=== PATIENT | male | born 1965 | race African-American/Black ===

== ENCOUNTER 2016-07-03 16:16 | Inpatient (IN) | payer OTHER ==
[2016-07-03 16:45] VITALS: BMI 24.0
--- NOTE | 2016-07-03 19:27 | HP ---
CIWA Score - CIWA Score Nausea/Vomitin-Mild Nausea/No Vomiting Muscle Tremors: 4-Moderate,w/Arms Extend Anxiety: 4-Mod. Anxious/Guarded Agitation: 4-Moderately Restless Paroxysmal Sweats: 1-Minimal Palms Moist Orientation: 0-Oriented Tacttile Disturbances: 0-None Auditory Disturbances: 3-Moderate Harsh/Frighten Visual Disturbances: 0-None Headache: 1-Very Mild CIWA-Ar Total Score: 18 Admission ROS BHS - HPI Chief Complaint: withdrawal sx Allergies/Adverse Reactions: Allergies Allergy/AdvReac Type Severity Reaction Status Date / Time No Known Allergies Allergy Verified 07/03/16 19:29 History of Present Illness: 51 years old male with long history of alcohol nicotine dependence has hypertension and ptsd depression is admitted to detox Exam Limitations: No Limitations - Ebola screening Have you traveled outside of the country in the last 21 days: No Have you had contact with anyone from an Ebola affected area: No Have you been sick,other than usual withdrawal symptoms: No Do you have a fever: No - Review of Systems Constitutional: Chills, Loss of Appetite, Changes in sleep, Unintentional Wgt. Loss EENT: reports: Blurred Vision (eye glasses reading), Other (right ear) Respiratory: reports: No Symptoms reported Cardiac: reports: No Symptoms Reported GI: reports: Nausea, Poor Appetite, Poor Fluid Intake, Abdominal cramping : reports: No Symptoms Reported Musculoskeletal: reports: Back Pain, Joint Pain (cervical) Integumentary: reports: Dryness Neuro: reports: Tremors Hematology: reports: No Symptoms Reported Psychiatric: reports: Judgement Intact, Depressed Other Systems: Reviewed and Negative Patient History - Patient Medical History Hx Anemia: No Hx Asthma: No Hx Chronic Obstructive Pulmonary Disease (COPD): No Hx Cancer: No Hx Cardiac Disorders: No Hx Congestive Heart Failure: No Hx Hypertension: Yes Hx Hypercholesterolemia: No Hx Pacemaker: No HX Cerebrovascular Accident: No Hx Seizures: No Hx Dementia: No Hx Diabetes: Yes (hypoglycemia) Hx Gastrointestinal Disorders: No Hx Liver Disease: No Hx Genitourinary Disorders: No Hx Sexually Transmitted Disorders: No Hx Renal Disease (ESRD): No Hx Thyroid Disease: No Hx Human Immunodeficiency Virus (HIV): No Hx Hepatitis C: No Hx Depression: Yes Hx Suicide Attempt: No Hx Bipolar Disorder: No Hx Schizophrenia: No - Patient Surgical History Past Surgical History: Yes Hx Neurologic Surgery: No Hx Cataract Extraction: No Hx Cardiac Surgery: No Hx Lung Surgery: No Hx Breast Surgery: No Hx Breast Biopsy: No Hx Abdominal Surgery: No Hx Appendectomy: No Hx Cholecystectomy: No Hx Genitourinary Surgery: No Hx Orthopedic Surgery: Yes (fx elisabethcarey 2006) Anesthesia Reaction: No - PPD History Previous Implant?: Yes Documented Results: Negative w/o proof Implanted On Prior R Admission?: No PPD to be Administered?: Yes - Smoking Cessation Smoking history: Current every day smoker Have you smoked in the past 12 months: Yes Aproximately how many cigarettes per day: 4 Cigars Per Day: 0 Hx Chewing Tobacco Use: No Initiated information on smoking cessation: Yes 'Breaking Loose' booklet given: 07/03/16 - Substance & Tx. History Hx Alcohol Use: Yes Hx Substance Use: Yes Substance Use Type: Alcohol, Cocaine, Marijuana Hx Substance Use Treatment: Yes - Substances Abused Alcohol Route: Oral Frequency: Daily Amount used: 6 pack beer+ pint volka Age of first use: 23 Date of Last Use: 07/03/16 Family Disease History - Family Disease History Family Disease History: CA: Grandparent, Mother Admission Physical Exam S - Vital Signs Vital Signs: Vital Signs - 24 hr 07/03/16 16:41 Temperature 97.1 F L Pulse Rate 90 Respiratory 20 Rate Blood Pressure 136/87 - Physical General Appearance: Yes: Appropriately Dressed, Mild Distress, Thin, Tremorous, Irritable, Sweating, Anxious HEENTM: Yes: Normocephalic, Normal Voice, Hearing Decreased (right ear otitis) Respiratory: Yes: Chest Non-Tender, Lungs Clear, Normal Breath Sounds, No Respiratory Distress, No Accessory Muscle Use Neck: Yes: Supple, Trachea in good position Breast: Yes: Breasts Symetrical Cardiology: Yes: Regular Rhythm, Regular Rate, S1, S2, Murmur Abdominal: Yes: Non Tender, Soft Genitourinary: Yes: Within Normal Limits Back: Yes: Normal Inspection Musculoskeletal: Yes: full range of Motion, Gait Steady, Back pain, Muscle Pain (cervical) Extremities: Yes: Normal Inspection, Normal Range of Motion, Non-Tender, Tremors Neurological: Yes: Alert, Motor Strength 5/5, Normal Response, Depressed Affect Integumentary: Yes: Warm Lymphatic: Yes: Within Normal Limits - Diagnostic (1) Alcohol dependence with uncomplicated withdrawal Current Visit: Yes Status: Acute (2) Hypertension Current Visit: Yes Status: Acute Qualifiers: Hypertension type: essential hypertension Qualified Code(s): I10 - Essential (primary) hypertension (3) Depression Current Visit: Yes Status: Suspected Qualifiers: Depression Type: major depressive disorder Major depression recurrence : recurrent Active/Remission status: in partial remission Qualified Code(s): F33.41 - Major depressive disorder, recurrent, in partial remission (4) Nicotine dependence Current Visit: Yes Status: Acute Qualifiers: Nicotine product type: cigarettes Substance use status: in withdrawal Qualified Code(s): F17.213 - Nicotine dependence, cigarettes, with withdrawal (5) Osteoarthritis Current Visit: Yes Status: Acute Qualifiers: Osteoarthritis location: multiple joints Osteoarthritis type: primary Qualified Code(s): M15.0 - Primary generalized (osteo)arthritis (6) Weight loss Current Visit: Yes Status: Acute (7) Hypoglycemia Current Visit: Yes Status: Chronic (8) Otitis externa Current Visit: Yes Status: Acute Qualifiers: Otitis externa type: diffuse Laterality: right Chronicity: acute Qualified Code(s): H60.311 - Diffuse otitis externa, right ear (9) Benign and innocent cardiac murmurs Current Visit: Yes Status: Chronic Cleared for Admission BHS - Detox or Rehab S Level of Care: Medically Managed Detox Regimen/Protocol: Librium S Breath Alcohol Content Breath Alcohol Content: 0 Urine Drug Screen - Results Drug Screen Negative: No Urine Drug Screen Results: THC-Marijuana, ANNAMARIE-Cocaine
[2016-07-03] MEDS ORDERED: MAGNESIUM CITRATE 300 ML BOTTLE PO PRN (19:41)
[2016-07-03] MEDS ORDERED: LOPERAMIDE HCL 2 MG CAPSULE PO PRN (19:41)
[2016-07-03] MEDS ORDERED: guaiFENesin/D-METHORPHAN HB 10 ML UNIT-DOSE CUPS PO PRN (19:41)
[2016-07-03] MEDS ORDERED: IBUPROFEN 400 MG TABLET (FP) PO PRN (19:41)
[2016-07-03] MEDS ORDERED: chlordiazePOXIDE HCL 25 MG CAPSULE PO PRN (19:41)
[2016-07-03] MEDS ORDERED: MAGNESIUM HYDROX 2400MG/30ML ORAL SUSPENSION 30 ML CUP PO PRN (19:41)
[2016-07-03] MEDS ORDERED: hydrOXYzine PAMOATE 50 MG CAPSULE (FP) PO PRN (19:41)
[2016-07-03] MEDS ORDERED: MENTHOL/PHENOL 1 EACH UD MM PRN (19:41)
[2016-07-03] MEDS ORDERED: NICOTINE POLACRILEX 2 MG GUM BUC PRN (19:41)
[2016-07-03] MEDS ORDERED: MAG HYDROX/AL HYDROX/SIMETH 30 ML UNIT-DOSE CUP PO PRN (19:41)
[2016-07-03] MEDS ORDERED: ACETAMINOPHEN 325 MG TABLET (FP) PO PRN (19:41)
[2016-07-03] MEDS ORDERED: P-EPHED 60MG/TRIPROLIDI 2.5MG TABLET PO PRN (19:41)
[2016-07-03] MEDS: diphenhydrAMINE HCL 50 MG CAPSULE PO PRN (22:26)
[2016-07-03] MEDS: chlordiazePOXIDE HCL 25 MG CAPSULE PO SCH (22:26)
[2016-07-03] MEDS: THIAMINE HCL 100 MG TABLET (FP) PO SCH (22:26)
[2016-07-03] MEDS: MINERAL OIL/PETROLAT/WATER TOPICAL CREAM 113 GM JAR TP SCH (22:54)
[2016-07-03] MEDS: OFLOXACIN 0.3% OTIC SOLUTION 5 ML BOTTLE AU SCH (22:54)
[2016-07-04 01:20] LABS: URINE APPEARANCE CLEAR; URINE BILIRUBIN NEGATIVE (NEGATIVE); URINE BLOOD NEGATIVE (NEGATIVE); URINE COLOR YELLOW; URINE GLUCOSE (UA) NEGATIVE (NEGATIVE); URINE KETONE NEGATIVE (NEGATIVE); URINE LEUK ESTERASE NEGATIVE (NEGATIVE); URINE NITRITE NEGATIVE (NEGATIVE); URINE PROTEIN NEGATIVE (NEGATIVE); URINE UROBILINOGEN 4.0 E.U/dl E.U./dl (0.2-1.0)
[2016-07-04] MEDS: chlordiazePOXIDE HCL 25 MG CAPSULE PO SCH ×4 (06:06→22:56)
--- NOTE | 2016-07-04 09:31 | EKG ---
Test Reason : Blood Pressure : / mmHG Vent. Rate : 069 BPM Atrial Rate : 069 BPM P-R Int : 196 ms QRS Dur : 084 ms QT Int : 394 ms P-R-T Axes : 063 063 069 degrees QTc Int : 422 ms NORMAL SINUS RHYTHM MINIMAL VOLTAGE CRITERIA FOR LVH, MAY BE NORMAL VARIANT NO PREVIOUS ECGS AVAILABLE Confirmed by AMRIK WOO MD ([id number]) on 07/04/2016 9:30:48 AM Referred By: Confirmed By:AMRIK WOO MD
[2016-07-04] MEDS ORDERED: LIDOCAINE 5% TOPICAL PATCH TP SCH (10:00)
[2016-07-04 10:27] LABS: MCH 31.1 pg (25.7-33.7); MCHC 33.4 g/dl (32.0-35.9); MEAN CELL VOLUME 93.3 fl (80-96); PLATELET COUNT 165 K/MM3 (134-434); RDW 13.9 % (11.9-15.9); WHITE BLOOD COUNT 5.3 K/mm3 (4.0-10.0)
[2016-07-04] MEDS: OFLOXACIN 0.3% OTIC SOLUTION 5 ML BOTTLE AU SCH ×2 (10:54→22:54)
[2016-07-04] MEDS: ASPIRIN 81 MG CHEWABLE TABLETS PO SCH (10:54)
[2016-07-04] MEDS: HYDROCHLOROTHIAZIDE 12.5 MG CAPSULE (FP) PO SCH (10:55)
[2016-07-04] MEDS: PRENATAL VITAMINS W/ FOLIC ACID TABLET (FP) PO SCH (10:56)
[2016-07-04] MEDS: LIDOCAINE 5% TOPICAL PATCH TP SCH (10:56)
[2016-07-04] MEDS: NICOTINE 14 MG/24 HOURS TOPICAL PATCH TD SCH (10:56)
--- NOTE | 2016-07-04 12:08 | PN ---
S CIWA - CIWA Score Nausea/Vomitin Muscle Tremors: 4-Moderate,w/Arms Extend Anxiety: 4-Mod. Anxious/Guarded Agitation: 4-Moderately Restless Paroxysmal Sweats: 3 Orientation: 0-Oriented Tacttile Disturbances: 1-Very Mild Itch/Numbness Auditory Disturbances: 0-None Visual Disturbances: 0-None Headache: 1-Very Mild CIWA-Ar Total Score: 20 BHS Progress Note (SOAP) Subjective: nausea, sweats, interrupted sleep, anxiety, tremors Objective: 07/04/16 12:07 Vital Signs - 8 hr 07/04/16 07/04/16 06:00 10:26 Temperature 97.5 F L 97.8 F Pulse Rate 66 77 Respiratory 18 18 Rate Blood Pressure 122/66 127/83 Laboratory Tests 07/04/16 07/04/16 07/04/16 00:45 07:40 07:40 WBC 5.3 RBC 4.82 Hgb 15.0 Hct 44.9 MCV 93.3 MCHC 33.4 RDW 13.9 Plt Count 165 MPV 8.0 Hemoglobin A1c % 5.6 Urine Color Yellow Urine Appearance Clear Urine pH 6.0 Ur Specific [place] 1.021 Urine Protein Negative Urine Glucose (UA) Negative Urine Ketones Negative Urine Blood Negative Urine Nitrite Negative Urine Bilirubin Negative Urine Urobilinogen 4.0 e.u/dl Ur Leukocyte Esterase Negative labs still pending Assessment: 07/04/16 12:08 withdrawal sx Plan: cont detox, fluids
[2016-07-04 12:10] LABS: ALBUMIN 3.6 g/dl (3.4-5.0); ALK PHOS 67 U/L (45-117); ANION GAP 13 (8-16); CALCIUM 8.7 mg/dL (8.5-10.1); CO2 23 mmol/L (21-32); CREATININE 1.1 mg/dL (0.7-1.3); GLUCOSE,RANDOM 97 mg/dL (74-106); SGOT/AST 10 U/L (15-37); SGPT/ALT 16 U/L (12-78); TOT PROT 7.2 g/dl (6.4-8.2)
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
[2016-07-04] MEDS: MINERAL OIL/PETROLAT/WATER TOPICAL CREAM 113 GM JAR TP SCH (22:53)
[2016-07-04] MEDS: THIAMINE HCL 100 MG TABLET (FP) PO SCH (22:56)
[2016-07-05] MEDS: chlordiazePOXIDE HCL 25 MG CAPSULE PO SCH ×3 (06:18→17:33)
[2016-07-05] MEDS: ASPIRIN 81 MG CHEWABLE TABLETS PO SCH (10:55)
[2016-07-05] MEDS: HYDROCHLOROTHIAZIDE 12.5 MG CAPSULE (FP) PO SCH (10:55)
[2016-07-05] MEDS: OFLOXACIN 0.3% OTIC SOLUTION 5 ML BOTTLE AU SCH ×2 (10:56→22:25)
[2016-07-05] MEDS: PRENATAL VITAMINS W/ FOLIC ACID TABLET (FP) PO SCH (10:57)
[2016-07-05] MEDS: NICOTINE 14 MG/24 HOURS TOPICAL PATCH TD SCH (10:58)
[2016-07-05] MEDS: LIDOCAINE 5% TOPICAL PATCH TP SCH (10:59)
--- NOTE | 2016-07-05 14:43 | PN ---
[facility] CIWA - CIWA Score Nausea/Vomitin-No Nausea/No Vomiting Muscle Tremors: 3 Anxiety: 4-Mod. Anxious/Guarded Agitation: 3 Paroxysmal Sweats: 3 Orientation: 0-Oriented Tacttile Disturbances: 0-None Auditory Disturbances: 0-None Visual Disturbances: 0-None Headache: 0-None Present CIWA-Ar Total Score: 13 S Progress Note (SOAP) Subjective: ANXIETY,TREMORS,SWEATING,INTERRUPTED SLEEP,RESTLESS Objective: 07/05/16 14:43 Vital Signs - 8 hr 07/05/16 07/05/16 10:00 14:00 Temperature 98.1 F 99.3 F Pulse Rate 81 84 Respiratory 16 18 Rate Blood Pressure 135/91 127/67 Laboratory Last Values WBC 5.3 K/mm3 (4.0-10.0) 07/04/16 07:40 RBC 4.82 M/mm3 (4.00-5.60) 07/04/16 07:40 Hgb 15.0 GM/dL (11.7-16.9) 07/04/16 07:40 Hct 44.9 % (35.4-49) 07/04/16 07:40 MCV 93.3 fl (80-96) 07/04/16 07:40 MCHC 33.4 g/dl (32.0-35.9) 07/04/16 07:40 RDW 13.9 % (11.9-15.9) 07/04/16 07:40 Plt Count 165 K/MM3 (134-434) 07/04/16 07:40 MPV 8.0 fl (7.5-11.1) 07/04/16 07:40 Sodium 140 mmol/L (136-145) 07/04/16 07:40 Potassium 4.2 mmol/L (3.5-5.1) 07/04/16 07:40 Chloride 104 mmol/L (98-107) 07/04/16 07:40 Carbon Dioxide 23 mmol/L (21-32) 07/04/16 07:40 Anion Gap 13 (8-16) 07/04/16 07:40 BUN 16 mg/dL (7-18) 07/04/16 07:40 Creatinine 1.1 mg/dL (0.7-1.3) 07/04/16 07:40 Creat Clearance w eGFR > 60 (>60) 07/04/16 07:40 Random Glucose 97 mg/dL (74-106) 07/04/16 07:40 Hemoglobin A1c % 5.6 % (4.8-6.0) 07/04/16 07:40 Calcium 8.7 mg/dL (8.5-10.1) 07/04/16 07:40 Total Bilirubin 1.0 mg/dL (0.2-1.0) 07/04/16 07:40 AST 10 U/L (15-37) L 07/04/16 07:40 ALT 16 U/L (12-78) 07/04/16 07:40 Alkaline Phosphatase 67 U/L (45-117) 07/04/16 07:40 Total Protein 7.2 g/dl (6.4-8.2) 07/04/16 07:40 Albumin 3.6 g/dl (3.4-5.0) 07/04/16 07:40 Urine Color Yellow 07/04/16 00:45 Urine Appearance Clear 07/04/16 00:45 Urine pH 6.0 (5.0-8.0) 07/04/16 00:45 Ur Specific [place] 1.021 (1.001-1.035) 07/04/16 00:45 Urine Protein Negative (NEGATIVE) 07/04/16 00:45 Urine Glucose (UA) Negative (NEGATIVE) 07/04/16 00:45 Urine Ketones Negative (NEGATIVE) 07/04/16 00:45 Urine Blood Negative (NEGATIVE) 07/04/16 00:45 Urine Nitrite Negative (NEGATIVE) 07/04/16 00:45 Urine Bilirubin Negative (NEGATIVE) 07/04/16 00:45 Urine Urobilinogen 4.0 e.u/dl E.U./dl (0.2-1.0) 07/04/16 00:45 Ur Leukocyte Esterase Negative (NEGATIVE) 07/04/16 00:45 RPR Titer Nonreactive (NONREACTIVE) 07/04/16 07:40 LABS NOTED Assessment: 07/05/16 14:43 WITHDRAWAL SX. Plan: CONTINUE DETOX
[2016-07-05] MEDS: CYCLOBENZAPRINE HCL 10 MG TABLET (FP) PO PRN (22:03)
[2016-07-05] MEDS: chlordiazePOXIDE 5 MG CAPSULE PO SCH (22:03)
[2016-07-05] MEDS: THIAMINE HCL 100 MG TABLET (FP) PO SCH (22:03)
[2016-07-05] MEDS: diphenhydrAMINE HCL 50 MG CAPSULE PO PRN (22:05)
[2016-07-05] MEDS: MINERAL OIL/PETROLAT/WATER TOPICAL CREAM 113 GM JAR TP SCH (22:25)
[2016-07-06] MEDS: chlordiazePOXIDE 5 MG CAPSULE PO SCH ×3 (04:42→17:19)
[2016-07-06] MEDS: PRENATAL VITAMINS W/ FOLIC ACID TABLET (FP) PO SCH (10:21)
[2016-07-06] MEDS: HYDROCHLOROTHIAZIDE 12.5 MG CAPSULE (FP) PO SCH (10:21)
[2016-07-06] MEDS: OFLOXACIN 0.3% OTIC SOLUTION 5 ML BOTTLE AU SCH ×2 (10:21→22:28)
[2016-07-06] MEDS: ASPIRIN 81 MG CHEWABLE TABLETS PO SCH (10:21)
[2016-07-06] MEDS: NICOTINE 14 MG/24 HOURS TOPICAL PATCH TD SCH (10:22)
--- NOTE | 2016-07-06 11:01 | PN ---
BHS Progress Note (SOAP) Subjective: nausea, sweats, interrupted sleep, anxiety, tremor Objective: 07/06/16 11:00 Vital Signs - 8 hr 07/06/16 07/06/16 07/06/16 03:30 05:01 10:19 Temperature 98.1 F 97.5 F L Pulse Rate 68 76 Respiratory 18 18 18 Rate Blood Pressure 113/64 132/74 Laboratory Tests 07/04/16 07/04/16 07/04/16 00:45 07:40 07:40 WBC 5.3 RBC 4.82 Hgb 15.0 Hct 44.9 MCV 93.3 MCHC 33.4 RDW 13.9 Plt Count 165 MPV 8.0 Sodium 140 Potassium 4.2 Chloride 104 Carbon Dioxide 23 Anion Gap 13 BUN 16 Creatinine 1.1 Creat Clearance w eGFR > 60 Random Glucose 97 Hemoglobin A1c % Calcium 8.7 Total Bilirubin 1.0 AST 10 L ALT 16 Alkaline Phosphatase 67 Total Protein 7.2 Albumin 3.6 Urine Color Yellow Urine Appearance Clear Urine pH 6.0 Ur Specific [place] 1.021 Urine Protein Negative Urine Glucose (UA) Negative Urine Ketones Negative Urine Blood Negative Urine Nitrite Negative Urine Bilirubin Negative Urine Urobilinogen 4.0 e.u/dl Ur Leukocyte Esterase Negative RPR Titer 07/04/16 07/04/16 07:40 07:40 WBC RBC Hgb Hct MCV MCHC RDW Plt Count MPV Sodium Potassium Chloride Carbon Dioxide Anion Gap BUN Creatinine Creat Clearance w eGFR Random Glucose Hemoglobin A1c % 5.6 Calcium Total Bilirubin AST ALT Alkaline Phosphatase Total Protein Albumin Urine Color Urine Appearance Urine pH Ur Specific [place] Urine Protein Urine Glucose (UA) Urine Ketones Urine Blood Urine Nitrite Urine Bilirubin Urine Urobilinogen Ur Leukocyte Esterase RPR Titer Nonreactive Assessment: 07/06/16 11:00 withdrawal sx Plan: cont detox, fluids, ambulation
[2016-07-06] MEDS: LIDOCAINE 5% TOPICAL PATCH TP SCH (13:01)
[2016-07-06] MEDS: chlordiazePOXIDE HCL 10 MG CAPSULE PO SCH (22:25)
[2016-07-06] MEDS: diphenhydrAMINE HCL 50 MG CAPSULE PO PRN (22:25)
[2016-07-06] MEDS: CYCLOBENZAPRINE HCL 10 MG TABLET (FP) PO PRN (22:25)
[2016-07-06] MEDS: THIAMINE HCL 100 MG TABLET (FP) PO SCH (22:25)
[2016-07-06] MEDS: MINERAL OIL/PETROLAT/WATER TOPICAL CREAM 113 GM JAR TP SCH (22:55)
[2016-07-07] MEDS: chlordiazePOXIDE HCL 10 MG CAPSULE PO SCH (05:36)
--- NOTE | 2016-07-07 09:04 | DS ---
[facility] Detox Discharge Summary Admission Date: 07/03/16 Discharge Date: 07/07/16 - History Present History: Alcohol Dependence, Cannabis Dependence, Cocaine Dependence - Physical Exam Results Vital Signs: Vital Signs Temperature 97.3 F L 07/07/16 06:22 Pulse Rate 61 07/07/16 06:22 Respiratory Rate 20 07/07/16 06:22 Blood Pressure 113/61 07/07/16 06:22 O2 Sat by Pulse Oximetry (%) - Treatment Hospital Course: Detox Protocol Followed, Detoxed Safely, Responded well, Discharged Condition Good, Rehab Referral Accepted - Medication Discharge Medications: Ambulatory Orders Mirtazapine [Remeron -] 30 mg PO DAILY #30 tablet 12/31/15 Mirtazapine [Remeron -] 30 mg PO HS #30 tablet 04/14/16 - Diagnosis (1) Alcohol dependence with uncomplicated withdrawal Current Visit: Yes Status: Chronic (2) Cannabis dependence Current Visit: Yes Status: Chronic (3) Cocaine dependence Current Visit: Yes Status: Chronic Qualifiers: Substance use status: uncomplicated Qualified Code(s): F14.20 - Cocaine dependence, uncomplicated (4) Drug-induced mood disorder Current Visit: Yes Status: Chronic (5) Insomnia Current Visit: Yes Status: Chronic (6) Nicotine dependence Current Visit: Yes Status: Chronic Qualifiers: Nicotine product type: cigarettes Substance use status: in withdrawal Qualified Code(s): F17.213 - Nicotine dependence, cigarettes, with withdrawal (7) Otitis externa Current Visit: Yes Status: Acute Qualifiers: Otitis externa type: diffuse Laterality: right Chronicity: acute Qualified Code(s): H60.311 - Diffuse otitis externa, right ear (8) Weight loss Current Visit: Yes Status: Acute (9) Benign and innocent cardiac murmurs Current Visit: Yes Status: Chronic (10) Hypertension Current Visit: Yes Status: Chronic Qualifiers: Hypertension type: essential hypertension Qualified Code(s): I10 - Essential (primary) hypertension (11) Hypoglycemia Current Visit: Yes Status: Chronic (12) Osteoarthritis Current Visit: Yes Status: Chronic Qualifiers: Osteoarthritis location: multiple joints Osteoarthritis type: primary Qualified Code(s): M15.0 - Primary generalized (osteo)arthritis (13) Depression Current Visit: Yes Status: Suspected Qualifiers: Depression Type: major depressive disorder Major depression recurrence : recurrent Active/Remission status: in partial remission Qualified Code(s): F33.41 - Major depressive disorder, recurrent, in partial remission (14) PTSD (post-traumatic stress disorder) Current Visit: No Status: Chronic - AMA Did Patient Leave Against Medical Advice: No
[2016-07-07 09:37] VITALS: BP 121/82; PULSE 75; TEMP 97
== END 2016-07-07 09:38 | disposition home or self-care (01) | DRG 774 ==
LOC: YASAS 16:16 → Y6N 19:34
PROVIDERS: ADMIT Internal Medicine; ATTEND Internal Medicine
PROC: HZ2ZZZZ Detoxification Services for Substance Abuse Treatment (ICD-10-PCS; principal; 2016-07-07)
DX: F10.230 Alcohol dependence with withdrawal, uncomplicated (principal); F14.20 Cocaine dependence, uncomplicated; F12.20 Cannabis dependence, uncomplicated; F17.210 Nicotine dependence, cigarettes, uncomplicated; F19.24 Other psychoactive substance dependence with psychoactive substance-induced mood disorder; F33.41 Major depressive disorder, recurrent, in partial remission; F43.10 Post-traumatic stress disorder, unspecified; G47.00 Insomnia, unspecified; I10 Essential (primary) hypertension; R01.0 Benign and innocent cardiac murmurs; M15.0 Primary generalized (osteo)arthritis; R63.4 Abnormal weight loss; Z68.24 Body mass index [BMI] 24.0-24.9, adult
CPT/HCPCS: 36415; 80053; 81003; 83036; 85027; 86593; 86803; 93005; 93010

== ENCOUNTER 2016-08-11 20:04 | Inpatient (IN) | payer OTHER ==
[2016-08-11 21:10] VITALS: BMI 23.7
--- NOTE | 2016-08-11 21:30 | HP ---
CIWA Score - CIWA Score Nausea/Vomitin-No Nausea/No Vomiting Muscle Tremors: 4-Moderate,w/Arms Extend Anxiety: 4-Mod. Anxious/Guarded Agitation: 4-Moderately Restless Paroxysmal Sweats: 1-Minimal Palms Moist Orientation: 1-Uncertain about Date Tacttile Disturbances: 0-None Auditory Disturbances: 2-Mild Harshness/Frighten Visual Disturbances: 2-Mild Sensitivity Headache: 0-None Present CIWA-Ar Total Score: 18 Admission ROS BHS - HPI Chief Complaint: C/O WITHDRAWAL SX'S. SEEKING DETOX TXMENT. Allergies/Adverse Reactions: Allergies Allergy/AdvReac Type Severity Reaction Status Date / Time No Known Allergies Allergy Verified 07/03/16 19:29 History of Present Illness: 51 Y.O. MALE WITH POLYSUBSTANCE ABUSE ADMITTED FOR ALCOHOLISM. CLIENT RECENTLY DC 1 MONTH GO RETURN FOR DETOX AND WOULD LIKE REHAB AFTERWARDS. Exam Limitations: Other ([place]) - Ebola screening Have you traveled outside of the country in the last 21 days: No (N) Have you had contact with anyone from an Ebola affected area: No Have you been sick,other than usual withdrawal symptoms: No Do you have a fever: No - Review of Systems Constitutional: Night Sweats, Changes in sleep EENT: reports: No Symptoms Reported Respiratory: reports: No Symptoms reported Cardiac: reports: No Symptoms Reported GI: reports: No Symptoms Reported : reports: No Symptoms Reported Musculoskeletal: reports: Back Pain, Neck Pain Integumentary: reports: No Symptoms Reported Neuro: reports: No Symptoms reported Endocrine: reports: Other (HYPOGLYCEMIC) Hematology: reports: No Symptoms Reported Psychiatric: reports: No Sypmtoms Reported Other Systems: Reviewed and Negative Patient History - Patient Medical History Hx Anemia: No Hx Asthma: No Hx Chronic Obstructive Pulmonary Disease (COPD): No Hx Cancer: No Hx Cardiac Disorders: No Hx Congestive Heart Failure: No Hx Hypertension: Yes Hx Hypercholesterolemia: No Hx Pacemaker: No HX Cerebrovascular Accident: No Hx Seizures: No Hx Dementia: No Hx Diabetes: Yes (hypoglycemia) Hx Gastrointestinal Disorders: No Hx Liver Disease: No Hx Genitourinary Disorders: No Hx Sexually Transmitted Disorders: No Hx Renal Disease (ESRD): No Hx Thyroid Disease: No Hx Human Immunodeficiency Virus (HIV): No Hx Hepatitis C: No Hx Depression: Yes Hx Suicide Attempt: No Hx Bipolar Disorder: No Hx Schizophrenia: No Other Medical History: PTSD - Patient Surgical History Past Surgical History: Yes Hx Neurologic Surgery: No Hx Cataract Extraction: No Hx Cardiac Surgery: No Hx Lung Surgery: No Hx Breast Surgery: No Hx Breast Biopsy: No Hx Abdominal Surgery: No Hx Appendectomy: No Hx Cholecystectomy: No Hx Genitourinary Surgery: No Hx Section: No Hx Orthopedic Surgery: Yes (fx [facility]) Anesthesia Reaction: No - PPD History Previous Implant?: Yes Documented Results: Negative w/proof Implanted On Prior [facility] Admission?: Yes Date: 07/05/16 PPD to be Administered?: No - Smoking Cessation Smoking history: Current every day smoker Have you smoked in the past 12 months: Yes Aproximately how many cigarettes per day: 6 Cigars Per Day: 0 Hx Chewing Tobacco Use: No Initiated information on smoking cessation: Yes 'Breaking Loose' booklet given: 08/11/16 - Substance & Tx. History Hx Alcohol Use: Yes Hx Substance Use: Yes Substance Use Type: Cocaine, Heroin Hx Substance Use Treatment: Yes ([facility]) - Substances Abused FANNY/BEER Route: Oral Frequency: Daily Amount used: 1 PINT/ 1 -6PACK Age of first use: 19 Date of Last Use: 08/11/16 ("EARLY THIS MORNING" 3 CANS OF BEER) Family Disease History - Family Disease History Family Disease History: [place]: Grandparent, Mother Admission Physical Exam [facility] - Vital Signs Vital Signs: Vital Signs - 24 hr 08/11/16 21:08 Temperature 95.8 F L Pulse Rate 96 H Respiratory 20 Rate Blood Pressure 156/79 - Physical General Appearance: Yes: Appropriately Dressed, Tremorous, Anxious HEENTM: Yes: EOMI, Normal ENT Inspection, Normocephalic, CHASIDY, Pharynx Normal, Other ([place], MISSING TEETH) Respiratory: Yes: Chest Non-Tender, Lungs Clear, Normal Breath Sounds, No Respiratory Distress, No Accessory Muscle Use Neck: Yes: No masses,lesions,Nodules, Supple, Trachea in good position Breast: Yes: Breast Exam Deferred Cardiology: Yes: Regular Rhythm, Regular Rate, S1, S2 Abdominal: Yes: Normal Bowel Sounds, Non Tender, Soft Genitourinary: Yes: Within Normal Limits Back: Yes: Normal Inspection Musculoskeletal: Yes: full range of Motion, Gait Steady Extremities: Yes: Normal Capillary Refill, Normal Range of Motion, Non-Tender, Tremors Neurological: Yes: Fully Oriented, Alert, Motor Strength 5/5 Integumentary: Yes: Normal Color, Dry, Warm Lymphatic: Yes: Within Normal Limits - Diagnostic (1) Alcohol dependence with uncomplicated withdrawal Current Visit: Yes Status: Chronic (2) Cannabis dependence Current Visit: Yes Status: Chronic (3) Cocaine dependence Current Visit: Yes Status: Chronic Qualifiers: Substance use status: uncomplicated Qualified Code(s): F14.20 - Cocaine dependence, uncomplicated (4) Hypertension Current Visit: Yes Status: Chronic Qualifiers: Hypertension type: essential hypertension Qualified Code(s): I10 - Essential (primary) hypertension (5) Hypoglycemia Current Visit: Yes Status: Chronic (6) Nicotine dependence Current Visit: Yes Status: Chronic Qualifiers: Nicotine product type: cigarettes Substance use status: in withdrawal Qualified Code(s): F17.213 - Nicotine dependence, cigarettes, with withdrawal (7) [place] (hard of hearing) Current Visit: Yes Status: Chronic Qualifiers: Laterality: bilateral Qualified Code(s): H91.93 - Unspecified hearing loss, bilateral Cleared for Admission [facility] - Detox or Rehab [facility] Level of Care: Medically Managed Detox Regimen/Protocol: Librium [facility] Breath Alcohol Content Breath Alcohol Content: 0 Urine Drug Screen - Results Drug Screen Negative: No Urine Drug Screen Results: THC-Marijuana, ANNAMARIE-Cocaine
[2016-08-11] MEDS ORDERED: LOPERAMIDE HCL 2 MG CAPSULE PO PRN (21:44)
[2016-08-11] MEDS ORDERED: guaiFENesin/D-METHORPHAN HB 10 ML UNIT-DOSE CUPS PO PRN (21:44)
[2016-08-11] MEDS ORDERED: MAGNESIUM CITRATE 300 ML BOTTLE PO PRN (21:44)
[2016-08-11] MEDS ORDERED: MAGNESIUM HYDROX 2400MG/30ML ORAL SUSPENSION 30 ML CUP PO PRN (21:44)
[2016-08-11] MEDS ORDERED: chlordiazePOXIDE HCL 25 MG CAPSULE PO PRN (21:44)
[2016-08-11] MEDS ORDERED: P-EPHED 60MG/TRIPROLIDI 2.5MG TABLET PO PRN (21:44)
[2016-08-11] MEDS ORDERED: hydrOXYzine PAMOATE 50 MG CAPSULE (FP) PO PRN (21:44)
[2016-08-11] MEDS ORDERED: IBUPROFEN 400 MG TABLET (FP) PO PRN (21:44)
[2016-08-11] MEDS ORDERED: NICOTINE POLACRILEX 2 MG GUM BC PRN (21:44)
[2016-08-11] MEDS ORDERED: MENTHOL/PHENOL 1 EACH UD MM PRN (21:44)
[2016-08-11] MEDS ORDERED: MAG HYDROX/AL HYDROX/SIMETH 30 ML UNIT-DOSE CUP PO PRN (21:44)
[2016-08-11] MEDS ORDERED: ACETAMINOPHEN 325 MG TABLET (FP) PO PRN (21:44)
[2016-08-11] MEDS: chlordiazePOXIDE HCL 25 MG CAPSULE PO SCH (22:29)
[2016-08-11] MEDS: THIAMINE HCL 100 MG TABLET (FP) PO SCH (22:30)
[2016-08-11] MEDS: diphenhydrAMINE HCL 50 MG CAPSULE PO PRN (22:30)
[2016-08-11] MEDS: NICOTINE 14 MG/24 HOURS TOPICAL PATCH TD SCH (22:33)
[2016-08-12] MEDS: chlordiazePOXIDE HCL 25 MG CAPSULE PO SCH ×4 (05:54→22:24)
[2016-08-12 10:02] LABS: MCH 31.1 pg (25.7-33.7); MCHC 32.9 g/dl (32.0-35.9); MEAN CELL VOLUME 94.3 fl (80-96); MEAN PLT VOLUME 8.1 fl (7.5-11.1); PLATELET COUNT 148 K/MM3 (134-434); RDW 14.5 % (11.9-15.9); WHITE BLOOD COUNT 3.3 K/mm3 (4.0-10.0)
[2016-08-12 10:04] LABS: ALBUMIN 3.2 g/dl (3.4-5.0); ALK PHOS 59 U/L (45-117); ANION GAP 7 (8-16); BILIRUBIN,TOTAL 0.3 mg/dL (0.2-1.0); CALCIUM 8.6 mg/dL (8.5-10.1); CO2 28 mmol/L (21-32); CREATININE 1.2 mg/dL (0.7-1.3); GLUCOSE,RANDOM 92 mg/dL (74-106); SGOT/AST 13 U/L (15-37); SGPT/ALT 18 U/L (12-78); TOT PROT 6.2 g/dl (6.4-8.2)
[2016-08-12] MEDS: NICOTINE 14 MG/24 HOURS TOPICAL PATCH TD SCH (10:19)
[2016-08-12] MEDS: PRENATAL VITAMINS W/ FOLIC ACID TABLET (FP) PO SCH (10:19)
[2016-08-12 11:07] LABS: HIV 1 & 2 AB NEGATIVE; HIV 1 AGp24 NEGATIVE
--- NOTE | 2016-08-12 12:53 | EKG ---
Test Reason : Blood Pressure : / mmHG Vent. Rate : 071 BPM Atrial Rate : 071 BPM P-R Int : 182 ms QRS Dur : 084 ms QT Int : 390 ms P-R-T Axes : 063 064 058 degrees QTc Int : 423 ms NORMAL SINUS RHYTHM MINIMAL VOLTAGE CRITERIA FOR LVH, MAY BE NORMAL VARIANT BORDERLINE ECG WHEN COMPARED WITH ECG OF 03-JUL-2016 20:50, NO SIGNIFICANT CHANGE WAS FOUND Confirmed by HOLLIS CARABALLO MD ([id number]) on 08/12/2016 12:52:53 PM Referred By: Confirmed By:HOLLIS CARABALLO MD
--- NOTE | 2016-08-12 13:18 | CONSULT ---
[facility] Psychiatric Consult - Data Date of interview: 08/12/16 Admission source: [facility] Identifying data: First admission to [facility] for this 51 y/o AA male seking detox treatment on for alcohol,cocaine and marijuana dependence.Patient is single,a father of two,domiciled,unemployed and supported on food stamps. Substance Abuse History: - Smoking Cessation. Smoking history: Current every day smoker. Have you smoked in the past 12 months: Yes. Aproximately how many cigarettes per day: 6. Cigars Per Day: 0. Hx Chewing Tobacco Use: No. Initiated information on smoking cessation: Yes. 'Breaking Loose' booklet given : 08/11/16. - Substance & Tx. History. Hx Alcohol Use: Yes. Hx Substance Use : Yes. Substance Use Type: Cocaine, Heroin. Hx Substance Use Treatment: Yes ( [facility] - Substances Abused. FANNY/BEER. Route: Oral. Frequency: Daily. Amount used: 1 PINT/ 1 -6PACK. Age of first use: 19. Date of Last Use: ("EARLY THIS MORNING" 3 CANS OF BEER) Additional Comment: Urine Drug Screen Results: THC-Marijuana, ANNAMARIE-Cocaine
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
--- NOTE | 2016-08-12 14:35 | PN ---
S CIWA - CIWA Score Nausea/Vomitin Muscle Tremors: 4-Moderate,w/Arms Extend Anxiety: 4-Mod. Anxious/Guarded Agitation: 3 Paroxysmal Sweats: 3 Orientation: 0-Oriented Tacttile Disturbances: 0-None Auditory Disturbances: 0-None Visual Disturbances: 0-None Headache: 0-None Present CIWA-Ar Total Score: 16 BHS Progress Note (SOAP) Subjective: Anxiety,tremors,sweating,interrupted sleep,restless Objective: 08/12/16 14:34 Vital Signs - 8 hr 08/12/16 08/12/16 09:46 13:14 Temperature 96.6 F L 97.2 F L Pulse Rate 70 61 Respiratory 18 18 Rate Blood Pressure 134/83 119/67 Laboratory Tests 08/12/16 08/12/16 08/12/16 06:30 07:00 07:00 WBC 3.3 L D RBC 4.43 Hgb 13.8 Hct 41.8 MCV 94.3 MCHC 32.9 RDW 14.5 Plt Count 148 MPV 8.1 Sodium 143 Potassium 3.9 Chloride 108 H Carbon Dioxide 28 D Anion Gap 7 L BUN 13 Creatinine 1.2 Creat Clearance w eGFR > 60 Random Glucose 92 Calcium 8.6 Total Bilirubin 0.3 D AST 13 L D ALT 18 Alkaline Phosphatase 59 Total Protein 6.2 L Albumin 3.2 L RPR Titer HIV 1&2 Antibody Screen Negative HIV P24 Antigen Negative 08/12/16 07:00 WBC RBC Hgb Hct MCV MCHC RDW Plt Count MPV Sodium Potassium Chloride Carbon Dioxide Anion Gap BUN Creatinine Creat Clearance w eGFR Random Glucose Calcium Total Bilirubin AST ALT Alkaline Phosphatase Total Protein Albumin RPR Titer Nonreactive HIV 1&2 Antibody Screen HIV P24 Antigen labs noted Assessment: 08/12/16 14:34 Withdrawal sx. Plan: Continue detox
[2016-08-12] MEDS ORDERED: QUEtiapine FUMARATE 100 MG TABLET (FP) PO SCH (22:00)
[2016-08-12] MEDS: diphenhydrAMINE HCL 50 MG CAPSULE PO PRN (22:24)
[2016-08-12] MEDS: THIAMINE HCL 100 MG TABLET (FP) PO SCH (22:24)
[2016-08-12 22:58] LABS: URINE APPEARANCE CLEAR; URINE BILIRUBIN NEGATIVE (NEGATIVE); URINE BLOOD NEGATIVE (NEGATIVE); URINE COLOR LTYELLOW; URINE GLUCOSE (UA) NEGATIVE (NEGATIVE); URINE KETONE NEGATIVE (NEGATIVE); URINE LEUK ESTERASE NEGATIVE (NEGATIVE); URINE NITRITE NEGATIVE (NEGATIVE); URINE PROTEIN NEGATIVE (NEGATIVE); URINE UROBILINOGEN NEGATIVE E.U./dl (0.2-1.0)
[2016-08-13] MEDS: chlordiazePOXIDE HCL 25 MG CAPSULE PO SCH ×2 (05:27→10:27)
--- NOTE | 2016-08-13 10:22 | PN ---
[facility] CIWA - CIWA Score Nausea/Vomitin-No Nausea/No Vomiting Muscle Tremors: 3 Anxiety: 2 Agitation: 2 Paroxysmal Sweats: 3 Orientation: 0-Oriented Tacttile Disturbances: 0-None Auditory Disturbances: 0-None Visual Disturbances: 0-None Headache: 0-None Present CIWA-Ar Total Score: 10 S Progress Note (SOAP) Subjective: Sweating,anxiety,tremors,interrupted sleep,restless. Objective: 08/13/16 10:20 Vital Signs - 8 hr 08/13/16 08/13/16 03:30 07:02 Temperature 97.1 F L Pulse Rate 69 Respiratory 18 16 Rate Blood Pressure 106/80 Laboratory Tests 08/11/16 08/12/16 08/12/16 07:00 06:30 07:00 WBC 3.3 L D RBC 4.43 Hgb 13.8 Hct 41.8 MCV 94.3 MCHC 32.9 RDW 14.5 Plt Count 148 MPV 8.1 Sodium Potassium Chloride Carbon Dioxide Anion Gap BUN Creatinine Creat Clearance w eGFR Random Glucose Calcium Total Bilirubin AST ALT Alkaline Phosphatase Total Protein Albumin Urine Color Urine Appearance Urine pH Ur Specific [place] Urine Protein Urine Glucose (UA) Urine Ketones Urine Blood Urine Nitrite Urine Bilirubin Urine Urobilinogen Ur Leukocyte Esterase RPR Titer Hepatitis C Antibody 0.1 HIV 1&2 Antibody Screen Negative HIV P24 Antigen Negative 08/12/16 08/12/16 08/12/16 07:00 07:00 22:50 WBC RBC Hgb Hct MCV MCHC RDW Plt Count MPV Sodium 143 Potassium 3.9 Chloride 108 H Carbon Dioxide 28 D Anion Gap 7 L BUN 13 Creatinine 1.2 Creat Clearance w eGFR > 60 Random Glucose 92 Calcium 8.6 Total Bilirubin 0.3 D AST 13 L D ALT 18 Alkaline Phosphatase 59 Total Protein 6.2 L Albumin 3.2 L Urine Color Ltyellow Urine Appearance Clear Urine pH 6.0 Ur Specific [place] 1.019 Urine Protein Negative Urine Glucose (UA) Negative Urine Ketones Negative Urine Blood Negative Urine Nitrite Negative Urine Bilirubin Negative Urine Urobilinogen Negative Ur Leukocyte Esterase Negative RPR Titer Nonreactive Hepatitis C Antibody HIV 1&2 Antibody Screen HIV P24 Antigen labs noted Assessment: 08/13/16 10:21 Withdrawal noted Plan: Continue detox
[2016-08-13] MEDS: PRENATAL VITAMINS W/ FOLIC ACID TABLET (FP) PO SCH (10:27)
[2016-08-13] MEDS: NICOTINE 14 MG/24 HOURS TOPICAL PATCH TD SCH (10:27)
[2016-08-13 13:48] VITALS: BP 129/86; PULSE 63; TEMP 98.6
--- NOTE | 2016-08-13 20:56 | DS ---
[facility] Detox Discharge Summary Admission Date: 08/11/16 Discharge Date: 08/13/16 - History Present History: Alcohol Dependence Additional Comments: due to personal financial obligation patient has to terminate inpatient detox regimen Pertinent Past History: cocaine dependence marijuana dependence hypertension nicotine dependence - Physical Exam Results Vital Signs: Vital Signs Temperature 98.6 F 08/13/16 13:47 Pulse Rate 63 08/13/16 13:47 Respiratory Rate 18 08/13/16 13:47 Blood Pressure 129/86 08/13/16 13:47 O2 Sat by Pulse Oximetry (%) Pertinent Admission Physical Exam Findings: withdrawal sx Laboratory Last Values WBC 3.3 K/mm3 (4.0-10.0) L D 08/12/16 06:30 RBC 4.43 M/mm3 (4.00-5.60) 08/12/16 06:30 Hgb 13.8 GM/dL (11.7-16.9) 08/12/16 06:30 Hct 41.8 % (35.4-49) 08/12/16 06:30 MCV 94.3 fl (80-96) 08/12/16 06:30 MCHC 32.9 g/dl (32.0-35.9) 08/12/16 06:30 RDW 14.5 % (11.9-15.9) 08/12/16 06:30 Plt Count 148 K/MM3 (134-434) 08/12/16 06:30 MPV 8.1 fl (7.5-11.1) 08/12/16 06:30 Sodium 143 mmol/L (136-145) 08/12/16 07:00 Potassium 3.9 mmol/L (3.5-5.1) 08/12/16 07:00 Chloride 108 mmol/L (98-107) H 08/12/16 07:00 Carbon Dioxide 28 mmol/L (21-32) D 08/12/16 07:00 Anion Gap 7 (8-16) L 08/12/16 07:00 BUN 13 mg/dL (7-18) 08/12/16 07:00 Creatinine 1.2 mg/dL (0.7-1.3) 08/12/16 07:00 Creat Clearance w eGFR > 60 (>60) 08/12/16 07:00 Random Glucose 92 mg/dL (74-106) 08/12/16 07:00 Calcium 8.6 mg/dL (8.5-10.1) 08/12/16 07:00 Total Bilirubin 0.3 mg/dL (0.2-1.0) D 08/12/16 07:00 AST 13 U/L (15-37) L D 08/12/16 07:00 ALT 18 U/L (12-78) 08/12/16 07:00 Alkaline Phosphatase 59 U/L (45-117) 08/12/16 07:00 Total Protein 6.2 g/dl (6.4-8.2) L 08/12/16 07:00 Albumin 3.2 g/dl (3.4-5.0) L 08/12/16 07:00 Urine Color Ltyellow 08/12/16 22:50 Urine Appearance Clear 08/12/16 22:50 Urine pH 6.0 (5.0-8.0) 08/12/16 22:50 Ur Specific [place] 1.019 (1.001-1.035) 08/12/16 22:50 Urine Protein Negative (NEGATIVE) 08/12/16 22:50 Urine Glucose (UA) Negative (NEGATIVE) 08/12/16 22:50 Urine Ketones Negative (NEGATIVE) 08/12/16 22:50 Urine Blood Negative (NEGATIVE) 08/12/16 22:50 Urine Nitrite Negative (NEGATIVE) 08/12/16 22:50 Urine Bilirubin Negative (NEGATIVE) 08/12/16 22:50 Urine Urobilinogen Negative E.U./dl (0.2-1.0) 08/12/16 22:50 Ur Leukocyte Esterase Negative (NEGATIVE) 08/12/16 22:50 RPR Titer Nonreactive (NONREACTIVE) 08/12/16 07:00 Hepatitis C Antibody 0.1 s/co ratio (0.0-0.9) 08/11/16 07:00 HIV 1&2 Antibody Screen Negative 08/12/16 07:00 HIV P24 Antigen Negative 08/12/16 07:00 lab noted - Treatment Hospital Course: Detox Protocol Followed, Responded well - Medication Discharge Medications: Ambulatory Orders Mirtazapine [Remeron -] 30 mg PO HS #30 tablet 04/14/16 Quetiapine Fumarate [Seroquel] 100 mg PO HS #30 tablet 08/12/16 - AMA Did Patient Leave Against Medical Advice: Yes (insists to leave the unit, refuses to wait face to face with provider)
[2016-08-13] MEDS ORDERED: chlordiazePOXIDE 5 MG CAPSULE PO SCH (23:00)
[2016-08-14] MEDS ORDERED: chlordiazePOXIDE HCL 10 MG CAPSULE PO SCH (23:00)
== END 2016-08-13 17:22 | disposition left against medical advice (07) | DRG 770 ==
LOC: YASAS 20:04 → Y3N 21:53
PROVIDERS: ADMIT Internal Medicine; ATTEND Internal Medicine
PROC: HZ2ZZZZ Detoxification Services for Substance Abuse Treatment (ICD-10-PCS; principal; 2016-08-13)
DX: F10.230 Alcohol dependence with withdrawal, uncomplicated (principal); F14.20 Cocaine dependence, uncomplicated; F12.20 Cannabis dependence, uncomplicated; F17.213 Nicotine dependence, cigarettes, with withdrawal; F19.24 Other psychoactive substance dependence with psychoactive substance-induced mood disorder; G47.00 Insomnia, unspecified; I10 Essential (primary) hypertension; M15.0 Primary generalized (osteo)arthritis; H91.93 Unspecified hearing loss, bilateral
CPT/HCPCS: 36415; 80053; 81003; 85027; 86593; 87389; 93005; 93010

== ENCOUNTER 2016-10-08 20:10 | Inpatient (IN) | payer OTHER ==
[2016-10-08 20:28] VITALS: BMI 23.5
--- NOTE | 2016-10-08 20:32 | HP ---
CIWA Score - CIWA Score Nausea/Vomitin-Mild Nausea/No Vomiting Muscle Tremors: 3 Anxiety: 2 Agitation: 3 Paroxysmal Sweats: 3 Orientation: 1-Uncertain about Date Tacttile Disturbances: 0-None Auditory Disturbances: 0-None Visual Disturbances: 1-Very Mild Sensitivity Headache: 0-None Present CIWA-Ar Total Score: 14 Admission ROS BHS - HPI Chief Complaint: WITHDRAWAL SYMPTOMS Allergies/Adverse Reactions: Allergies Allergy/AdvReac Type Severity Reaction Status Date / Time No Known Allergies Allergy Verified 10/08/16 20:48 History of Present Illness: 51 Y.O. MAN WITH AN EXTENSIVE HISTORY OF DRUG AND ALCOHOL DEPENDENCE IS HERE SEEKING DETOX. HE WAS LAST HERE IN 08/2016 BUT LEFT AMA. HE REPORTS HIS LONGEST PERIOD CLEAN WAS 5 YEARS. Exam Limitations: No Limitations - Ebola screening Have you traveled outside of the country in the last 21 days: No Have you had contact with anyone from an Ebola affected area: No Have you been sick,other than usual withdrawal symptoms: No Do you have a fever: No - Review of Systems Constitutional: Loss of Appetite, Unintentional Wgt. Loss EENT: reports: Blurred Vision, Hearing Loss Respiratory: reports: No Symptoms reported Cardiac: reports: No Symptoms Reported, Chest Pain GI: reports: Poor Appetite : reports: No Symptoms Reported Musculoskeletal: reports: Back Pain, Neck Pain Integumentary: reports: No Symptoms Reported (0) Neuro: reports: Tremors Endocrine: reports: No Symptoms Reported Hematology: reports: No Symptoms Reported Psychiatric: reports: other (PTSD) Other Systems: Reviewed and Negative Patient History - Patient Medical History Hx Anemia: No Hx Asthma: No Hx Chronic Obstructive Pulmonary Disease (COPD): No Hx Cancer: No Hx Cardiac Disorders: No Hx Congestive Heart Failure: No Hx Hypertension: Yes Hx Hypercholesterolemia: No Hx Pacemaker: No HX Cerebrovascular Accident: No Hx Seizures: No Hx Dementia: No Hx Diabetes: No Hx Gastrointestinal Disorders: Yes ([place] ) Hx Liver Disease: No Hx Genitourinary Disorders: No Hx Sexually Transmitted Disorders: No Hx Renal Disease (ESRD): No Hx Thyroid Disease: No Hx Human Immunodeficiency Virus (HIV): No Hx Hepatitis C: No Hx Depression: Yes Hx Suicide Attempt: No Hx Bipolar Disorder: No Hx Schizophrenia: No - Patient Surgical History Past Surgical History: Yes Hx Neurologic Surgery: No Hx Cataract Extraction: No Hx Cardiac Surgery: No Hx Lung Surgery: No Hx Breast Surgery: No Hx Breast Biopsy: No Hx Abdominal Surgery: No Hx Appendectomy: No Hx Cholecystectomy: No Hx Genitourinary Surgery: No Hx Section: No Hx Orthopedic Surgery: Yes (fx mandibular 2006) Anesthesia Reaction: No - PPD History Previous Implant?: Yes Documented Results: Negative w/proof Implanted On Prior [facility] Admission?: Yes Date: 07/05/16 Results: 0 mm PPD to be Administered?: No - Reproductive History Patient is a Female of Child Bearing Age (11 -55 yrs old): No - Smoking Cessation Smoking history: Current every day smoker Have you smoked in the past 12 months: Yes Aproximately how many cigarettes per day: 6 Cigars Per Day: 0 Hx Chewing Tobacco Use: No Initiated information on smoking cessation: Yes 'Breaking Loose' booklet given: 10/08/16 - Substance & Tx. History Hx Alcohol Use: Yes Hx Substance Use: Yes Substance Use Type: Alcohol, Cocaine, Marijuana Hx Substance Use Treatment: Yes ([facility] REH[facility] ) - Substances Abused Alcohol Route: Oral Frequency: Daily Amount used: 6 PACK OF 12OZ CAN OF BEERS + 1 PINT OF LIQUOR Age of first use: 19 Date of Last Use: 10/08/16 Cocaine Route: Smoking Frequency: 1-2 times per week Amount used: $50 Marijuana/Hashish Route: Oral Frequency: Daily Amount used: $10 Age of first use: 19 Date of Last Use: 10/08/16 Family Disease History - Family Disease History Family Disease History: [place]: Grandparent, Mother Admission Physical Exam BHS - Vital Signs Vital Signs: Vital Signs - 24 hr 10/08/16 20:26 Temperature 96.6 F L Pulse Rate 82 Respiratory 20 Rate Blood Pressure 119/67 - Physical General Appearance: Yes: Thin, Tremorous, Anxious HEENTM: Yes: Normocephalic, Normal Voice, Hearing Decreased Respiratory: Yes: Lungs Clear, Normal Breath Sounds, No Respiratory Distress, No Accessory Muscle Use Neck: Yes: No masses,lesions,Nodules, Trachea in good position Breast: Yes: Breast Exam Deferred Cardiology: Yes: Regular Rhythm, Regular Rate Abdominal: Yes: Non Tender, Flat Genitourinary: Yes: Other (NO COMPLAINTS REPORTED) Musculoskeletal: Yes: Back pain Extremities: Yes: Normal Inspection, Normal Range of Motion, Non-Tender 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, Alert, Normal Mood/Affect, Normal Response Integumentary: Yes: Normal Color, Dry Lymphatic: Yes: Within Normal Limits - Diagnostic (1) Alcohol dependence with uncomplicated withdrawal Current Visit: Yes Status: Chronic (2) Cannabis dependence Current Visit: Yes Status: Chronic (3) Cocaine dependence Current Visit: Yes Status: Chronic Qualifiers: Substance use status: uncomplicated Qualified Code(s): F14.20 - Cocaine dependence, uncomplicated (4) Nicotine dependence Current Visit: Yes Status: Chronic Qualifiers: Nicotine product type: cigarettes Substance use status: in withdrawal Qualified Code(s): F17.213 - Nicotine dependence, cigarettes, with withdrawal (5) [place] (hard of hearing) Current Visit: Yes Status: Chronic Qualifiers: Laterality: bilateral Qualified Code(s): H91.93 - Unspecified hearing loss, bilateral (6) Hypertension Current Visit: Yes Status: Chronic Qualifiers: Hypertension type: essential hypertension Qualified Code(s): I10 - Essential (primary) hypertension (7) Hypoglycemia Current Visit: Yes Status: Chronic Cleared for Admission S - Detox or Rehab [facility] Level of Care: Medically Managed Detox Regimen/Protocol: Librium [facility] Breath Alcohol Content Breath Alcohol Content: 0 Urine Drug Screen - Results Drug Screen Negative: No Urine Drug Screen Results: THC-Marijuana, ANNAMARIE-Cocaine
[2016-10-08] MEDS ORDERED: P-EPHED 60MG/TRIPROLIDI 2.5MG TABLET PO PRN (20:46)
[2016-10-08] MEDS ORDERED: MAGNESIUM HYDROX 2400MG/30ML ORAL SUSPENSION 30 ML CUP PO PRN (20:46)
[2016-10-08] MEDS ORDERED: MENTHOL/PHENOL 1 EACH UD MM PRN (20:46)
[2016-10-08] MEDS ORDERED: hydrOXYzine PAMOATE 50 MG CAPSULE (FP) PO PRN (20:46)
[2016-10-08] MEDS ORDERED: chlordiazePOXIDE HCL 25 MG CAPSULE PO PRN (20:46)
[2016-10-08] MEDS ORDERED: IBUPROFEN 400 MG TABLET (FP) PO PRN (20:46)
[2016-10-08] MEDS ORDERED: MAG HYDROX/AL HYDROX/SIMETH 30 ML UNIT-DOSE CUP PO PRN (20:46)
[2016-10-08] MEDS ORDERED: MAGNESIUM CITRATE 300 ML BOTTLE PO PRN (20:46)
[2016-10-08] MEDS ORDERED: NICOTINE POLACRILEX 2 MG GUM BC PRN (20:46)
[2016-10-08] MEDS ORDERED: guaiFENesin/D-METHORPHAN HB 10 ML UNIT-DOSE CUPS PO PRN (20:46)
[2016-10-08] MEDS ORDERED: ACETAMINOPHEN 325 MG TABLET (FP) PO PRN (20:46)
[2016-10-08] MEDS ORDERED: chlordiazePOXIDE HCL 25 MG CAPSULE PO ONE (20:46)
[2016-10-08] MEDS ORDERED: LOPERAMIDE HCL 2 MG CAPSULE PO PRN (20:46)
[2016-10-08] MEDS: diphenhydrAMINE HCL 50 MG CAPSULE PO PRN (23:03)
[2016-10-08] MEDS: THIAMINE HCL 100 MG TABLET (FP) PO SCH (23:03)
[2016-10-08] MEDS: chlordiazePOXIDE HCL 25 MG CAPSULE PO SCH (23:03)
[2016-10-08 23:04] LABS: URINE APPEARANCE CLEAR; URINE BILIRUBIN NEGATIVE (NEGATIVE); URINE BLOOD NEGATIVE (NEGATIVE); URINE COLOR LTYELLOW; URINE GLUCOSE (UA) NEGATIVE (NEGATIVE); URINE KETONE NEGATIVE (NEGATIVE); URINE NITRITE NEGATIVE (NEGATIVE); URINE PROTEIN NEGATIVE (NEGATIVE); URINE UROBILINOGEN 2.0 E.U/dl E.U./dl (0.2-1.0)
[2016-10-08 23:08] LABS: URINE LEUK ESTERASE 1+ (NEGATIVE)
[2016-10-08 23:11] LABS: URINE BACTERIA RARE /hpf (NONE SEEN); URINE MUCUS RARE; URINE RBC <1 /hpf (0-3); URINE WBC 10 /hpf (3-5)
[2016-10-09] MEDS: chlordiazePOXIDE HCL 25 MG CAPSULE PO SCH ×4 (06:03→22:02)
[2016-10-09 09:58] LABS: MCH 30.9 pg (25.7-33.7); MEAN CELL VOLUME 93.7 fl (80-96); MEAN PLT VOLUME 7.7 fl (7.5-11.1); PLATELET COUNT 191 K/MM3 (134-434); RDW 13.8 % (11.9-15.9); WHITE BLOOD COUNT 3.2 K/mm3 (4.0-10.0)
[2016-10-09] MEDS: NICOTINE 14 MG/24 HOURS TOPICAL PATCH TD SCH (10:16)
[2016-10-09] MEDS: PRENATAL VITAMINS W/ FOLIC ACID TABLET (FP) PO SCH (10:16)
[2016-10-09 10:36] LABS: ALBUMIN 3.4 g/dl (3.4-5.0); ANION GAP 6 (8-16); CALCIUM 8.7 mg/dL (8.5-10.1); CO2 27 mmol/L (21-32); COCKROFT - GAULT 88.82; CREATININE 1.2 mg/dL (0.7-1.3); GLUCOSE,RANDOM 101 mg/dL (74-106); SGOT/AST 16 U/L (15-37); SGPT/ALT 16 U/L (12-78)
[2016-10-09 10:38] LABS: ALK PHOS 57 U/L (45-117); BILIRUBIN,TOTAL 0.6 mg/dL (0.2-1.0); TOT PROT 6.7 g/dl (6.4-8.2)
--- NOTE | 2016-10-09 11:16 | CONSULT ---
[facility] Psychiatric Consult - Data Date of interview: 10/09/16 Admission source: [facility] Identifying data: Readmission to [facility] for this 51 y/o AA male seking detox treatment on for alcohol,cocaine and marijuana dependence.Patient is single,a father of two,domiciled,unemployed and reportedly employed. Substance Abuse History: - Smoking Cessation. Smoking history: Current every day smoker. Have you smoked in the past 12 months: Yes. Aproximately how many cigarettes per day: 6. Cigars Per Day: 0. Hx Chewing Tobacco Use: No. Initiated information on smoking cessation: Yes. 'Breaking Loose' booklet given : 10/08/16. - Substance & Tx. History. Hx Alcohol Use: Yes. Hx Substance Use : Yes. Substance Use Type: Alcohol, Cocaine, Marijuana. Hx Substance Use Treatment: Yes (DETOX AND REHAB ). - Substances Abused. Alcohol. Route: Oral. Frequency: Daily. Amount used: 6 PACK OF 12OZ CAN OF BEERS + 1 PINT OF LIQUOR. Age of first use: 19. Date of Last Use: 10/08/16. Cocaine. Route : Smoking. Frequency: 1-2 times per week. Amount used: $50. Marijuana/ Hashish. Route: Oral. Frequency: Daily. Amount used: $10. Age of first use: 19. Date of Last Use: 10/08/16. Confirmed by patient. Medical History: Osteoarthritis,dyspepsia,decreased hearing (both ears),heart murmur,low back pain,hypertension and past surgical treatment for fracture of left mandible. Psychiatric History: Patient denies history of psychiatric hospitalizations.No report of [facility] care.Patient is currently on seroquel 100 mg/hs to address insomnia.No history of suicide attempts. Physical/Sexual Abuse/Trauma History: Patient denies. Additional Comment: Urine Drug Screen Results: THC-Marijuana, ANNAMARIE-Cocaine.Noted. Mental Status Exam - Mental Status Exam Alert and Oriented to: Time, Place, Person Cognitive Function: Good Patient Appearance: Well Groomed Mood: Withdrawn Affect: Appropriate, Normal Range Patient Behavior: Fatigued, Appropriate, Cooperative Speech Pattern: Clear Voice Loudness: Normal Thought Process: Intact, Goal Oriented Thought Disorder: Not Present Hallucinations: Denies Suicidal Ideation: Denies Homicidal Ideation: Denies Insight/Judgement: Poor Sleep: Poorly, Difficulty falling asleep Appetite: Good Muscle strength/Tone: Normal Gait/Station: Normal Psychiatric Findings - Problem List ([place] 1, 2,3) (1) Alcohol dependence with uncomplicated withdrawal Current Visit: Yes Status: Acute (2) Cannabis dependence Current Visit: Yes Status: Acute (3) Cocaine dependence Current Visit: Yes Status: Acute Qualifiers: Substance use status: uncomplicated Qualified Code(s): F14.20 - Cocaine dependence, uncomplicated (4) Nicotine dependence Current Visit: Yes Status: Acute Qualifiers: Nicotine product type: cigarettes Substance use status: in withdrawal Qualified Code(s): F17.213 - Nicotine dependence, cigarettes, with withdrawal (5) Drug-induced mood disorder Current Visit: Yes Status: Acute (6) LIME (hard of hearing) Current Visit: Yes Status: Chronic Qualifiers: Laterality: bilateral Qualified Code(s): H91.93 - Unspecified hearing loss, bilateral (7) Hypertension Current Visit: Yes Status: Chronic Qualifiers: Hypertension type: essential hypertension Qualified Code(s): I10 - Essential (primary) hypertension (8) Benign and innocent cardiac murmurs Current Visit: No Status: Chronic (9) Osteoarthritis Current Visit: Yes Status: Chronic Qualifiers: Osteoarthritis location: multiple joints Osteoarthritis type: primary Qualified Code(s): M15.0 - Primary generalized (osteo)arthritis (10) Insomnia Current Visit: Yes Status: Chronic - Initial Treatment Plan Initial Treatment Plan: Psychoeducation.Detoxification.Seroquel 100 mg po hs.Ordered.Side effects/benefits discussed with patient.He agrees with careplan.Observation.
--- NOTE | 2016-10-09 11:41 | EKG ---
Test Reason : Blood Pressure : / mmHG Vent. Rate : 069 BPM Atrial Rate : 069 BPM P-R Int : 206 ms QRS Dur : 084 ms QT Int : 402 ms P-R-T Axes : 073 071 066 degrees QTc Int : 430 ms NORMAL SINUS RHYTHM VOLTAGE CRITERIA FOR LEFT VENTRICULAR HYPERTROPHY ABNORMAL ECG WHEN COMPARED WITH ECG OF 11-AUG-2016 22:37, NO SIGNIFICANT CHANGE WAS FOUND Confirmed by AMRIK WOO MD ([id number]) on 10/09/2016 11:41:37 AM Referred By: Confirmed By:AMRIK WOO MD
--- NOTE | 2016-10-09 12:44 | PN ---
S CIWA - CIWA Score Nausea/Vomitin-No Nausea/No Vomiting Muscle Tremors: 4-Moderate,w/Arms Extend Anxiety: 3 Agitation: 4-Moderately Restless Paroxysmal Sweats: 3 Orientation: 0-Oriented Tacttile Disturbances: 0-None Auditory Disturbances: 0-None Visual Disturbances: 0-None Headache: 0-None Present CIWA-Ar Total Score: 14 BHS Progress Note (SOAP) Subjective: Anxiety,tremors,sweating,interrupted sleep,restless. Objective: 10/09/16 12:42 Vital Signs - 8 hr 10/09/16 10/09/16 06:34 10:37 Temperature 96.6 F L 96.1 F L Pulse Rate 53 L 66 Respiratory 18 18 Rate Blood Pressure 123/79 135/81 Laboratory Tests 10/08/16 10/09/16 10/09/16 22:55 07:00 07:00 WBC 3.2 L RBC 4.56 Hgb 14.1 Hct 42.7 MCV 93.7 MCHC 33.0 RDW 13.8 Plt Count 191 D MPV 7.7 Sodium 141 Potassium 4.2 Chloride 108 H Carbon Dioxide 27 Anion Gap 6 L BUN 19 H D Creatinine 1.2 Creat Clearance w eGFR > 60 Random Glucose 101 Calcium 8.7 Total Bilirubin 0.6 D AST 16 D ALT 16 Alkaline Phosphatase 57 Total Protein 6.7 Albumin 3.4 Urine Color Ltyellow Urine Appearance Clear Urine pH 5.0 Ur Specific [place] 1.020 Urine Protein Negative Urine Glucose (UA) Negative Urine Ketones Negative Urine Blood Negative Urine Nitrite Negative Urine Bilirubin Negative Urine Urobilinogen 2.0 e.u/dl Ur Leukocyte Esterase 1+ H Urine RBC <1 Urine WBC 10 Ur Epithelial Cells Rare Urine Bacteria Rare Urine Mucus Rare labs noted Assessment: 10/09/16 12:42 withdrawal sx. Plan: Continue detox
[2016-10-09 13:11] LABS: HIV 1 & 2 AB NEGATIVE; HIV 1 AGp24 NEGATIVE
[2016-10-09] MEDS: QUEtiapine FUMARATE 100 MG TABLET (FP) PO SCH (22:02)
[2016-10-09] MEDS: THIAMINE HCL 100 MG TABLET (FP) PO SCH (22:02)
[2016-10-09] MEDS: diphenhydrAMINE HCL 50 MG CAPSULE PO PRN (22:02)
[2016-10-10] MEDS: chlordiazePOXIDE HCL 25 MG CAPSULE PO SCH ×3 (06:07→17:33)
[2016-10-10] MEDS: NICOTINE 14 MG/24 HOURS TOPICAL PATCH TD SCH (10:50)
[2016-10-10] MEDS: PRENATAL VITAMINS W/ FOLIC ACID TABLET (FP) PO SCH (10:50)
--- NOTE | 2016-10-10 17:18 | PN ---
S CIWA - CIWA Score Nausea/Vomitin Muscle Tremors: 4-Moderate,w/Arms Extend Anxiety: 3 Agitation: 2 Paroxysmal Sweats: 1-Minimal Palms Moist Orientation: 1-Uncertain about Date Tacttile Disturbances: 3-Moderate Itch/Numb/Burn Auditory Disturbances: 0-None Visual Disturbances: 2-Mild Sensitivity Headache: 0-None Present CIWA-Ar Total Score: 18 S Progress Note (SOAP) Subjective: Body aches, Tremors, Interrupted Sleep. Objective: PT. A & O X 2 (DISORIENTED ABOUT DAY / DATE). 10/10/16 17:17 Vital Signs Temperature 96.8 F L 10/10/16 06:47 Pulse Rate 57 L 10/10/16 06:47 Respiratory Rate 18 10/10/16 06:47 Blood Pressure 113/77 10/10/16 06:47 O2 Sat by Pulse Oximetry (%) Laboratory Last Values WBC 3.2 K/mm3 (4.0-10.0) L 10/09/16 07:00 RBC 4.56 M/mm3 (4.00-5.60) 10/09/16 07:00 Hgb 14.1 GM/dL (11.7-16.9) 10/09/16 07:00 Hct 42.7 % (35.4-49) 10/09/16 07:00 MCV 93.7 fl (80-96) 10/09/16 07:00 MCHC 33.0 g/dl (32.0-35.9) 10/09/16 07:00 RDW 13.8 % (11.9-15.9) 10/09/16 07:00 Plt Count 191 K/MM3 (134-434) D 10/09/16 07:00 MPV 7.7 fl (7.5-11.1) 10/09/16 07:00 Sodium 141 mmol/L (136-145) 10/09/16 07:00 Potassium 4.2 mmol/L (3.5-5.1) 10/09/16 07:00 Chloride 108 mmol/L (98-107) H 10/09/16 07:00 Carbon Dioxide 27 mmol/L (21-32) 10/09/16 07:00 Anion Gap 6 (8-16) L 10/09/16 07:00 BUN 19 mg/dL (7-18) H D 10/09/16 07:00 Creatinine 1.2 mg/dL (0.7-1.3) 10/09/16 07:00 Creat Clearance w eGFR > 60 (>60) 10/09/16 07:00 Random Glucose 101 mg/dL (74-106) 10/09/16 07:00 Calcium 8.7 mg/dL (8.5-10.1) 10/09/16 07:00 Total Bilirubin 0.6 mg/dL (0.2-1.0) D 10/09/16 07:00 AST 16 U/L (15-37) D 10/09/16 07:00 ALT 16 U/L (12-78) 10/09/16 07:00 Alkaline Phosphatase 57 U/L (45-117) 10/09/16 07:00 Total Protein 6.7 g/dl (6.4-8.2) 10/09/16 07:00 Albumin 3.4 g/dl (3.4-5.0) 10/09/16 07:00 Urine Color Ltyellow 10/08/16 22:55 Urine Appearance Clear 10/08/16 22:55 Urine pH 5.0 (5.0-8.0) 10/08/16 22:55 Ur Specific [place] 1.020 (1.001-1.035) 10/08/16 22:55 Urine Protein Negative (NEGATIVE) 10/08/16 22:55 Urine Glucose (UA) Negative (NEGATIVE) 10/08/16 22:55 Urine Ketones Negative (NEGATIVE) 10/08/16 22:55 Urine Blood Negative (NEGATIVE) 10/08/16 22:55 Urine Nitrite Negative (NEGATIVE) 10/08/16 22:55 Urine Bilirubin Negative (NEGATIVE) 10/08/16 22:55 Urine Urobilinogen 2.0 e.u/dl E.U./dl (0.2-1.0) 10/08/16 22:55 Ur Leukocyte Esterase 1+ (NEGATIVE) H 10/08/16 22:55 Urine RBC <1 /hpf (0-3) 10/08/16 22:55 Urine WBC 10 /hpf (3-5) 10/08/16 22:55 Ur Epithelial Cells Rare /hpf (FEW) 10/08/16 22:55 Urine Bacteria Rare /hpf (NONE SEEN) 10/08/16 22:55 Urine Mucus Rare 10/08/16 22:55 RPR Titer Nonreactive (NONREACTIVE) 10/09/16 07:00 Hepatitis C Antibody <0.1 s/co ratio (0.0-0.9) 10/09/16 07:00 HIV 1&2 Antibody Screen Negative 10/09/16 07:00 HIV P24 Antigen Negative 10/09/16 07:00 LABS NOTED. Assessment: 10/10/16 17:18 WITHDRAWAL SYMPTOMS. Plan: CONTINUE DETOX. INCREASE PO FLUIDS. ADVISED PATIENT TO FOLLOW-UP WITH [facility] [employer] WORKER / REHAB MEDICAL PROVIDER AFTER DISCHARGE FROM DETOX FOR GENERAL MEDICAL ASSESSMENT AND FOR ABNORMAL ADMISSION LAB VALUES.
[2016-10-10] MEDS: QUEtiapine FUMARATE 100 MG TABLET (FP) PO SCH (22:04)
[2016-10-10] MEDS: THIAMINE HCL 100 MG TABLET (FP) PO SCH (22:04)
[2016-10-10] MEDS: diphenhydrAMINE HCL 50 MG CAPSULE PO PRN (22:04)
[2016-10-10] MEDS: chlordiazePOXIDE 5 MG CAPSULE PO SCH (22:04)
[2016-10-11] MEDS: chlordiazePOXIDE 5 MG CAPSULE PO SCH ×3 (05:55→17:20)
[2016-10-11] MEDS: PRENATAL VITAMINS W/ FOLIC ACID TABLET (FP) PO SCH (10:31)
[2016-10-11] MEDS: NICOTINE 14 MG/24 HOURS TOPICAL PATCH TD SCH (10:31)
--- NOTE | 2016-10-11 14:35 | PN ---
[facility] Progress Note (SOAP) Subjective: Anxious, sweating, interrupted sleep Objective: 10/11/16 14:33 Last Vital Signs Temp Pulse Resp BP Pulse Ox 97 F L 75 18 120/75 10/11/16 13:31 10/11/16 13:31 10/11/16 13:31 10/11/16 13:31 Laboratory Tests 10/08/16 10/09/16 10/09/16 22:55 07:00 07:00 WBC 3.2 L RBC 4.56 Hgb 14.1 Hct 42.7 MCV 93.7 MCHC 33.0 RDW 13.8 Plt Count 191 D MPV 7.7 Sodium 141 Potassium 4.2 Chloride 108 H Carbon Dioxide 27 Anion Gap 6 L BUN 19 H D Creatinine 1.2 Creat Clearance w eGFR > 60 Random Glucose 101 Calcium 8.7 Total Bilirubin 0.6 D AST 16 D ALT 16 Alkaline Phosphatase 57 Total Protein 6.7 Albumin 3.4 Urine Color Ltyellow Urine Appearance Clear Urine pH 5.0 Ur Specific [place] 1.020 Urine Protein Negative Urine Glucose (UA) Negative Urine Ketones Negative Urine Blood Negative Urine Nitrite Negative Urine Bilirubin Negative Urine Urobilinogen 2.0 e.u/dl Ur Leukocyte Esterase 1+ H Urine RBC <1 Urine WBC 10 Ur Epithelial Cells Rare Urine Bacteria Rare Urine Mucus Rare RPR Titer Hepatitis C Antibody HIV 1&2 Antibody Screen HIV P24 Antigen 10/09/16 10/09/16 10/09/16 07:00 07:00 07:00 WBC RBC Hgb Hct MCV MCHC RDW Plt Count MPV Sodium Potassium Chloride Carbon Dioxide Anion Gap BUN Creatinine Creat Clearance w eGFR Random Glucose Calcium Total Bilirubin AST ALT Alkaline Phosphatase Total Protein Albumin Urine Color Urine Appearance Urine pH Ur Specific [place] Urine Protein Urine Glucose (UA) Urine Ketones Urine Blood Urine Nitrite Urine Bilirubin Urine Urobilinogen Ur Leukocyte Esterase Urine RBC Urine WBC Ur Epithelial Cells Urine Bacteria Urine Mucus RPR Titer Nonreactive Hepatitis C Antibody <0.1 HIV 1&2 Antibody Screen Negative HIV P24 Antigen Negative Labs noted Assessment: 10/11/16 14:34 Withdrawal symptoms Plan: Continue detox, encouraged to drink lots of water
[2016-10-11] MEDS: THIAMINE HCL 100 MG TABLET (FP) PO SCH (22:04)
[2016-10-11] MEDS: QUEtiapine FUMARATE 100 MG TABLET (FP) PO SCH (22:04)
[2016-10-11] MEDS: chlordiazePOXIDE HCL 10 MG CAPSULE PO SCH (22:04)
[2016-10-11] MEDS: diphenhydrAMINE HCL 50 MG CAPSULE PO PRN (22:04)
[2016-10-12] MEDS: chlordiazePOXIDE HCL 10 MG CAPSULE PO SCH ×2 (06:00→10:17)
[2016-10-12 06:34] VITALS: BP 110/75; PULSE 70; TEMP 96.1
--- NOTE | 2016-10-12 09:13 | DS ---
[facility] Detox Discharge Summary Admission Date: 10/08/16 Discharge Date: 10/12/16 - History Present History: Alcohol Dependence, Cannabis Dependence, Cocaine Dependence Pertinent Past History: HTN Arthritis PTSD - Physical Exam Results Vital Signs: Vital Signs Temperature 96.1 F L 10/12/16 06:34 Pulse Rate 70 10/12/16 06:34 Respiratory Rate 16 10/12/16 06:34 Blood Pressure 110/75 10/12/16 06:34 O2 Sat by Pulse Oximetry (%) Pertinent Admission Physical Exam Findings: Withdrawal sx. Laboratory Last Values WBC 3.2 K/mm3 (4.0-10.0) L 10/09/16 07:00 RBC 4.56 M/mm3 (4.00-5.60) 10/09/16 07:00 Hgb 14.1 GM/dL (11.7-16.9) 10/09/16 07:00 Hct 42.7 % (35.4-49) 10/09/16 07:00 MCV 93.7 fl (80-96) 10/09/16 07:00 MCHC 33.0 g/dl (32.0-35.9) 10/09/16 07:00 RDW 13.8 % (11.9-15.9) 10/09/16 07:00 Plt Count 191 K/MM3 (134-434) D 10/09/16 07:00 MPV 7.7 fl (7.5-11.1) 10/09/16 07:00 Sodium 141 mmol/L (136-145) 10/09/16 07:00 Potassium 4.2 mmol/L (3.5-5.1) 10/09/16 07:00 Chloride 108 mmol/L (98-107) H 10/09/16 07:00 Carbon Dioxide 27 mmol/L (21-32) 10/09/16 07:00 Anion Gap 6 (8-16) L 10/09/16 07:00 BUN 19 mg/dL (7-18) H D 10/09/16 07:00 Creatinine 1.2 mg/dL (0.7-1.3) 10/09/16 07:00 Creat Clearance w eGFR > 60 (>60) 10/09/16 07:00 Random Glucose 101 mg/dL (74-106) 10/09/16 07:00 Calcium 8.7 mg/dL (8.5-10.1) 10/09/16 07:00 Total Bilirubin 0.6 mg/dL (0.2-1.0) D 10/09/16 07:00 AST 16 U/L (15-37) D 10/09/16 07:00 ALT 16 U/L (12-78) 10/09/16 07:00 Alkaline Phosphatase 57 U/L (45-117) 10/09/16 07:00 Total Protein 6.7 g/dl (6.4-8.2) 10/09/16 07:00 Albumin 3.4 g/dl (3.4-5.0) 10/09/16 07:00 Urine Color Ltyellow 10/08/16 22:55 Urine Appearance Clear 10/08/16 22:55 Urine pH 5.0 (5.0-8.0) 10/08/16 22:55 Ur Specific [place] 1.020 (1.001-1.035) 10/08/16 22:55 Urine Protein Negative (NEGATIVE) 10/08/16 22:55 Urine Glucose (UA) Negative (NEGATIVE) 10/08/16 22:55 Urine Ketones Negative (NEGATIVE) 10/08/16 22:55 Urine Blood Negative (NEGATIVE) 10/08/16 22:55 Urine Nitrite Negative (NEGATIVE) 10/08/16 22:55 Urine Bilirubin Negative (NEGATIVE) 10/08/16 22:55 Urine Urobilinogen 2.0 e.u/dl E.U./dl (0.2-1.0) 10/08/16 22:55 Ur Leukocyte Esterase 1+ (NEGATIVE) H 10/08/16 22:55 Urine RBC <1 /hpf (0-3) 10/08/16 22:55 Urine WBC 10 /hpf (3-5) 10/08/16 22:55 Ur Epithelial Cells Rare /hpf (FEW) 10/08/16 22:55 Urine Bacteria Rare /hpf (NONE SEEN) 10/08/16 22:55 Urine Mucus Rare 10/08/16 22:55 RPR Titer Nonreactive (NONREACTIVE) 10/09/16 07:00 Hepatitis C Antibody <0.1 s/co ratio (0.0-0.9) 10/09/16 07:00 HIV 1&2 Antibody Screen Negative 10/09/16 07:00 HIV P24 Antigen Negative 10/09/16 07:00 labs noted - Treatment Hospital Course: Detox Protocol Followed, Detoxed Safely, Responded well, Discharged Condition Good, Rehab Referral Accepted Patient has Accepted a Rehab Referral to: [facility] or [facility] - Medication Discharge Medications: Ambulatory Orders Mirtazapine [Remeron -] 30 mg PO HS #30 tablet 04/14/16 Quetiapine Fumarate [Seroquel] 100 mg PO HS #30 tablet 08/12/16 Quetiapine Fumarate [Seroquel] 100 mg PO HS #30 tablet 10/09/16 - Diagnosis (1) Alcohol dependence with uncomplicated withdrawal Current Visit: Yes Status: Acute (2) Cannabis dependence Current Visit: Yes Status: Acute (3) Cocaine dependence Current Visit: Yes Status: Acute Qualifiers: Substance use status: uncomplicated Qualified Code(s): F14.20 - Cocaine dependence, uncomplicated (4) Drug-induced mood disorder Current Visit: Yes Status: Acute (5) Nicotine dependence Current Visit: Yes Status: Acute Qualifiers: Nicotine product type: cigarettes Substance use status: in withdrawal Qualified Code(s): F17.213 - Nicotine dependence, cigarettes, with withdrawal (6) [place] (hard of hearing) Current Visit: Yes Status: Chronic Qualifiers: Laterality: bilateral Qualified Code(s): H91.93 - Unspecified hearing loss, bilateral (7) Hypertension Current Visit: Yes Status: Chronic Qualifiers: Hypertension type: essential hypertension Qualified Code(s): I10 - Essential (primary) hypertension (8) Osteoarthritis Current Visit: Yes Status: Chronic Qualifiers: Osteoarthritis location: multiple joints Osteoarthritis type: primary Qualified Code(s): M15.0 - Primary generalized (osteo)arthritis - AMA Did Patient Leave Against Medical Advice: No
[2016-10-12] MEDS: PRENATAL VITAMINS W/ FOLIC ACID TABLET (FP) PO SCH (10:18)
[2016-10-12] MEDS: NICOTINE 14 MG/24 HOURS TOPICAL PATCH TD SCH (10:18)
== END 2016-10-12 10:24 | disposition home or self-care (01) | DRG 774 ==
LOC: YASAS 20:10 → Y3N 21:03
PROVIDERS: ADMIT Internal Medicine; ATTEND Internal Medicine
PROC: HZ2ZZZZ Detoxification Services for Substance Abuse Treatment (ICD-10-PCS; principal; 2016-10-12)
DX: F10.230 Alcohol dependence with withdrawal, uncomplicated (principal); F14.20 Cocaine dependence, uncomplicated; F12.20 Cannabis dependence, uncomplicated; F17.213 Nicotine dependence, cigarettes, with withdrawal; F19.24 Other psychoactive substance dependence with psychoactive substance-induced mood disorder; G47.00 Insomnia, unspecified; I10 Essential (primary) hypertension; M15.0 Primary generalized (osteo)arthritis; H91.93 Unspecified hearing loss, bilateral; R01.1 Cardiac murmur, unspecified
CPT/HCPCS: 36415; 80053; 81003; 81015; 85027; 86593; 87389; 93005; 93010